=== PATIENT | female | born 1985 | race Caucasian/White ===

== ENCOUNTER 2016-08-15 11:50 | Emergency (ER) | payer OTHER ==
[2016-08-15 11:57] VITALS: BP 118/74; PULSE 90; TEMP 98.5; BMI 43.4
--- NOTE | 2016-08-15 13:14 | PDOC ---
History of Present Illness - General Chief Complaint: Cold Symptoms Stated Complaint: COLD SYMPTOMS Time Seen by Provider: 08/15/16 12:39 - History of Present Illness Initial Comments: 08/15/16 13:06 CHIEF COMPLAINT: cough, congestion, headache, yeast infection HISTORY OF PRESENT ILLNESS: 30 yo with no significant PMH presents to ED with sudden onset congestion, cough, headache. Patient states she was feeling fine yesterday morning and went to work, and "out of nowhere" she started feeling terrible and by the time she went home from work she felt really sick. This morning she woke up feeling even worse. She has not taken any medications for her symptoms. She denies fever or chills, nausea, vomiting, diarrhea, and states she only takes ibuprofen for really bad back pain sometimes. Patient also reports "I have a yeast infection" and states she is itchy with white, cottage cheese like discharge, "just like the last time I had a yeast infection. " PAST MEDICAL HISTORY: Denies past medical history FAMILY HISTORY: Denies SOCIAL HISTORY: Current smoker, 1/2 pack daily. Denies alcohol, illicit drug use. SURGICAL HISTORY: Denies ALLERGIES: tetrocycline REVIEW OF SYSTEMS General/Constitutional: Denies fever or chills. Denies weakness, weight change. HEENT: Denies change in vision. Denies ear pain or discharge. Denies sore throat. Cardiovascular: Denies chest pain or shortness of breath. Respiratory: Denies cough, wheezing, or hemoptysis. Gastrointestinal: Denies nausea, vomiting, diarrhea or constipation. Denies rectal bleeding. Genitourinary: Denies dysuria, frequency, or change in urination. Musculoskeletal: Denies joint or muscle swelling or pain. Denies neck or back pain. Skin and breasts: Denies rash or easy bruising. Neurologic: Headache since this morning. Denies, vertigo, loss of consciousness , or loss of sensation. PHYSICAL EXAM General Appearance: Well-appearing, appropriately dressed. No apparent distress. HEENT: Tenderness to maxillary and frontal bones on palpation. Swollen turbinates. EOMI, PERRLA, normal ENT inspection, normal voice, TMs normal, pharynx normal. No conjunctival pallor. No photophobia, scleral icterus. Neck: Supple. Trachea midline. No tenderness, rigidity, carotid bruit, stridor , lymphadenopathy, or thyromegaly. Respiratory/Chest: Lungs CTAB. Cardiovascular: RRR. S1, S2. Gastrointestinal/Abdominal: Normal bowel sounds. Abdomen soft, non-distended. No tenderness or rebound tenderness. No organomegaly, pulsatile mass, guarding , hernia, hepatomegaly, splenomegaly. Integumentary: Appropriate color, dry, warm. 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 Fully oriented, alert. Appropriate mood/affect. Motor strength 5/5. No appreciable EOM palsy, facial droop or sensory deficit. Past History - Past Medical History Allergies/Adverse Reactions: Allergies Allergy/AdvReac Type Severity Reaction Status Date / Time tetracycline Allergy Verified 08/15/16 12:47 Home Medications: Ambulatory Orders Dextromethorphan HBr [Robitussin] 15 mg PO QID PRN #20 cap 08/15/16 Fluconazole 150 mg PO ONCE #1 tablet 08/15/16 Ibuprofen 600 mg PO QID PRN #28 tablet 08/15/16 Oseltamivir Phosphate [Tamiflu] 75 mg PO BID #10 capsule 08/15/16 Suicide Attempt (Hx): No - Psycho/Social/Smoking Cessation Hx Anxiety: No Suicidal Ideation: No Smoking History: Never smoked Have you smoked in the past 12 months: No Number of Cigarettes Smoked Daily: 10 Hx Alcohol Use: No Drug/Substance Use Hx: No Substance Use Type: None *Physical Exam - Vital Signs Last Vital Signs Temp Pulse Resp BP Pulse Ox 98.5 F 90 18 118/74 97 08/15/16 11:55 08/15/16 11:55 08/15/16 11:55 08/15/16 11:55 08/15/16 11:55 Medical Decision Making - Medical Decision Making 08/15/16 13:14 30 yo with no significant PMH presents to ED with sudden onset congestion, cough , headache. -Flu swab Flu positive for influenza A. -Tamiflu 75 mg bid x 5 days -Ibuprofen 600 mg TID PRN fever/body aches -Dextromethrophan 15 mL qid PRN cough -Diflucan 150 mg po for yeast infection Rxs sent to pharm. Advised patient to take meds as prescribed and f/u with PMD by the end of next week. Advised patient of signs and symptoms for return to ER; patient verbalized understanding and agrees to plan. *DC/Admit/Observation/Transfer Diagnosis at time of Disposition: Influenza A, Yeast infection - Discharge Dispostion Disposition: HOME Condition at time of disposition: Stable Admit: No - Prescriptions Prescriptions: Fluconazole 150 mg PO ONCE #1 tablet Ibuprofen 600 mg PO QID PRN #28 tablet PRN Reason: Fever Dextromethorphan HBr [Robitussin] 15 mg PO QID PRN #20 cap PRN Reason: Cough Oseltamivir Phosphate [Tamiflu] 75 mg PO BID #10 capsule - Referrals Referrals: Archie Aguilar MD [Primary Care Provider] - - Patient Instructions Printed Discharge Instructions: DI for Influenza -- Adult Additional Instructions: Please take medications as prescribed and follow up with your primary care doctor by the end of next week. If you experience persistent fever unrelieved by medication, nausea, vomiting, diarrhea, rash, headache, shortness of breath, chest pain, or any new or worsening symptoms, please return to the ER. - Post Discharge Activity Work/School Note: Back to Work
== END 2016-08-15 14:06 | disposition home or self-care (01) ==
LOC: JERFT 11:50
DX: J09.X2 Influenza due to identified novel influenza A virus with other respiratory manifestations (principal); B37.3 Candidiasis of vulva and vagina
CPT/HCPCS: 87804; 99281-25

== ENCOUNTER 2016-10-02 23:36 | Emergency (ER) | payer OTHER ==
[2016-10-02 23:55] VITALS: BP 144/78; PULSE 101; TEMP 98.1; BMI 43.1
--- NOTE | 2016-10-03 00:05 | PDOC ---
History of Present Illness - General Chief Complaint: Pain Stated Complaint: FOOT PAIN Time Seen by Provider: 10/02/16 23:53 History Source: Patient Exam Limitations: No Limitations - History of Present Illness Initial Comments: 10/03/16 00:00 31yo Female patient presents to ED c/o right foot pain. Patient states symptoms began approximately 2 weeks ago on and off. While at work today, patient states "I stepped wrong," and felt sharp pain to front of foot, and each time she steps down pain radiates to back of horton. She reports being able to only walk on the heel of her right foot. Denies any other complaints at this time. LNMP: . Occurred: reports: other (2 Weeks.) Severity: Yes: moderate Lower Extremity Pain Location: right: foot Method of Injury: No: unknown, assault, burn, direct blow, fell, incised, motor vehicle accident, sports injury, twisted, other Modifying Factors: worse with: None, cold therapy, immobilization, pain medication, rest, other Lower Ext. Injury Location - Specific Injury Location Foot: right foot soft tissue tenderness, right foot pain, left foot non-tender, bilateral foot no evidence of injury, bilateral foot normal inspection, bilateral foot normal range of motion Extremity Pain Location - Extremity Pain Location Extremity Pain Locations: right: foot Past History - Travel Traveled outside of the country in the last 30 days: No Close contact w/someone who was outside of country & ill: No - Past Medical History Allergies/Adverse Reactions: Allergies Allergy/AdvReac Type Severity Reaction Status Date / Time tetracycline Allergy Verified 10/03/16 00:00 Home Medications: Ambulatory Orders Ibuprofen [Motrin -] 600 mg PO Q6H PRN #20 tablet 10/03/16 Prednisone [Deltasone -] 40 mg PO DAILY #8 tablet 10/03/16 Suicide Attempt (Hx): No Other medical history: Denies - Immunization History Immunization Up to Date: No - Psycho/Social/Smoking Cessation Hx Anxiety: No Suicidal Ideation: No Smoking History: Current every day smoker Have you smoked in the past 12 months: Yes Number of Cigarettes Smoked Daily: 10 Information on smoking cessation initiated: No Hx Alcohol Use: Yes Drug/Substance Use Hx: No Substance Use Type: Alcohol Review of Systems - Review of Systems Able to Perform ROS?: Yes Is the patient limited Sammarinese proficient: No Constitutional: No: Chills, Fever Respiratory: No: Cough, Stridor, Wheezing Cardiac (ROS): No: Chest Pain, Lightheadedness, Palpitations, Syncope ABD/GI: No: Diarrhea, Nausea, Vomiting Musculoskeletal: Yes: Other (Foot Pain) All Other Systems: Reviewed and Negative *Physical Exam - Vital Signs Last Vital Signs Temp Pulse Resp BP Pulse Ox 98.1 F 101 H 18 144/78 98 10/02/16 23:51 10/02/16 23:51 10/02/16 23:51 10/02/16 23:51 10/02/16 23:51 - Physical Exam General Appearance: Yes: Nourished, Appropriately Dressed. No: Apparent Distress, Mild Distress, Moderate Distress, Severe Distress Respiratory/Chest: positive: Lungs Clear, Normal Breath Sounds. negative: Accessory Muscle Use, Labored Respiration, Rapid RR Cardiovascular: positive: Regular Rhythm, Regular Rate. negative: Edema, JVD, Bradycardia, Tachycardia Musculoskeletal: positive: Normal Inspection. negative: CVA Tenderness, Vertebral Tenderness Extremity: positive: Normal Capillary Refill, Normal Inspection, Normal Range of Motion, Tender (Lateral aspect of right foot plantar surface.). 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, Fully Oriented, Alert, Normal Mood/ Affect, Normal Response, Motor Strength 5/5 ED Treatment Course - RADIOLOGY Radiology Studies Ordered: Category Date Time Status FOOT-RIGHT [RAD] Stat Radiology 10/02/16 23:59 Ordered *DC/Admit/Observation/Transfer Diagnosis at time of Disposition: Left foot pain - Discharge Dispostion Disposition: HOME Condition at time of disposition: Stable Admit: No - Prescriptions Prescriptions: Prednisone [Deltasone -] 40 mg PO DAILY #8 tablet Ibuprofen [Motrin -] 600 mg PO Q6H PRN #20 tablet PRN Reason: Foot Pain - Referrals Referrals: STAFF,NOT ON [Primary Care Provider] - Rodríguez Angel MD [Staff Physician] - - Patient Instructions Printed Discharge Instructions: DI for Foot Pain Additional Instructions: FOLLOW UP WITH DR. ANGEL (ORTHOPEDIC). CALL TO SCHEDULE APPOINTMENT. TAKE MEDICATIONS PRESCRIBED. SOAK FOOT IN WARM SITZ BATH. AVOID PROLONGED STANDING. PURCHASE COMFORTABLE FOOTWEAR. RETURN IF ANY CONCERNS FOR WORSENING OF SYMPTOMS. Print Language: DANISH - Post Discharge Activity Work/School Note: Back to Work
[2016-10-03 00:25] LABS: URINE APPEARANCE CLEAR; URINE BILIRUBIN NEGATIVE (NEGATIVE); URINE BLOOD NEGATIVE (NEGATIVE); URINE COLOR LTYELLOW; URINE GLUCOSE (UA) NEGATIVE (NEGATIVE); URINE KETONE NEGATIVE (NEGATIVE); URINE LEUK ESTERASE NEGATIVE (NEGATIVE); URINE NITRITE NEGATIVE (NEGATIVE); URINE PROTEIN NEGATIVE (NEGATIVE); URINE UROBILINOGEN NEGATIVE E.U./dl (0.2-1.0)
[2016-10-03] MEDS ORDERED: predniSONE 20 MG TABLET (UD) PO ONE (01:34)
[2016-10-03] MEDS ORDERED: IBUPROFEN 400 MG TABLET (FP) PO ONE ×2 (01:34→01:38)
[2016-10-03] MEDS ORDERED: predniSONE 20 MG TABLET (UD) ONE (01:37)
== END 2016-10-03 01:45 | disposition home or self-care (01) ==
LOC: SUPCPDRO 23:36 → JER 23:36
DX: M79.671 Pain in right foot (principal); X50.1XXA Overexertion from prolonged static or awkward postures, initial encounter; Y93.89 Activity, other specified; Y92.511 Restaurant or cafe as the place of occurrence of the external cause; Y99.0 Civilian activity done for income or pay
CPT/HCPCS: 73630-TC-RT; 81003; 84703; 99282-25

== ENCOUNTER 2021-02-22 13:59 | Emergency (ER) | payer OTHER ==
[2021-02-22 14:19] VITALS: BP 110/68; PULSE 82; TEMP 98.2; BMI 38.5
[2021-02-22] MEDS ORDERED: KETOROLAC TROMETHAMINE 30 MG/1 ML VIAL IM ONE (15:08)
[2021-02-22] MEDS ORDERED: METHOCARBAMOL 500 MG TABLET PO ONE (15:08)
[2021-02-22] MEDS ORDERED: METHOCARBAMOL 500 MG TABLET ONE (15:16)
[2021-02-22] MEDS ORDERED: KETOROLAC TROMETHAMINE 30 MG/1 ML VIAL ONE (15:16)
== END 2021-02-22 15:50 | disposition home or self-care (01) ==
LOC: JERFT 13:59
PROC: 3E0233Z Introduction of Anti-inflammatory into Muscle, Percutaneous Approach (ICD-10-PCS; principal; 2021-02-22)
DX: M54.5 Low back pain (principal); V43.52XA Car driver injured in collision with other type car in traffic accident, initial encounter
CPT/HCPCS: 99284-25

== ENCOUNTER 2021-04-16 08:53 | Emergency (ER) | payer OTHER ==
[2021-04-16 09:08] VITALS: BMI 27.4
[2021-04-16] MEDS ORDERED: SODIUM CHLORIDE 1,000 ML IV STA (11:23)
[2021-04-16] MEDS ORDERED: LIDOCAINE 5% TOPICAL PATCH TP ONE (11:23)
[2021-04-16] MEDS ORDERED: ACETAMINOPHEN 1000 MG/100 ML VIAL (NON FORMULARY) IVPB ONE (11:23)
[2021-04-16] MEDS ORDERED: LIDOCAINE 5% TOPICAL PATCH ONE (12:13)
[2021-04-16] MEDS ORDERED: ACETAMINOPHEN INJECTION 100 ML IVPB ONE (12:13)
[2021-04-16 12:19] LABS: BASO % 0.5 % (0-2.0); EOS % 3.7 % (0-4.5); HEMATOCRIT 39.3 % (32.4-45.2); HEMOGLOBIN 13.1 GM/dL (10.7-15.3); LYMPH % 27.5 % (8-40); MCH 28.4 pg (25.7-33.7); MCHC 33.5 g/dl (32.0-36.0); MEAN PLT VOLUME 7.5 fl (7.5-11.1); MONO % 6.1 % (3.8-10.2); NEUT % 62.2 % (42.8-82.8); PLATELET COUNT 264 10^3/uL (134-434); RBC 4.62 M/mm3 (3.60-5.2); RDW 14.2 % (11.6-15.6); WHITE BLOOD COUNT 10.8 K/mm3 (4.0-10.0)
[2021-04-16 12:21] LABS: PH,URINE 6.5 (5.0-8.0); URINE APPEARANCE CLEAR; URINE BILIRUBIN NEGATIVE (NEGATIVE); URINE COLOR YELLOW; URINE GLUCOSE (UA) NEGATIVE (NEGATIVE); URINE KETONE NEGATIVE (NEGATIVE); URINE LEUK ESTERASE NEGATIVE (NEGATIVE); URINE NITRITE NEGATIVE (NEGATIVE); URINE PROTEIN NEGATIVE (NEGATIVE)
[2021-04-16 12:24] LABS: INR 0.99 (0.83-1.09); PROTHROMBIN TIME (PATIENT) 12.2 SEC (9.7-13.0)
[2021-04-16 12:27] LABS: HCG,QUALITATIVE URINE Negative
[2021-04-16 12:40] LABS: CALCIUM 8.9 mg/dL (8.5-10.1)
[2021-04-16 12:41] LABS: ALBUMIN 3.6 g/dl (3.4-5.0)
[2021-04-16 12:44] LABS: CREATININE 0.7 mg/dL (0.55-1.3)
[2021-04-16 12:45] LABS: BILIRUBIN,TOTAL 0.3 mg/dL (0.2-1); TOT PROT 6.9 g/dl (6.4-8.2)
[2021-04-16 15:12] VITALS: BP 118/65; PULSE 70; TEMP 98.6
[2021-04-16] MEDS ORDERED: LIDOCAINE PATCH REMOVAL MC ONE (22:00)
== END 2021-04-16 15:13 | disposition home or self-care (01) ==
LOC: JER 08:53
PROC: 3E0333Z Introduction of Anti-inflammatory into Peripheral Vein, Percutaneous Approach (ICD-10-PCS; principal; 2021-04-16)
PROC: 3E0337Z Introduction of Electrolytic and Water Balance Substance into Peripheral Vein, Percutaneous Approach (ICD-10-PCS; 2021-04-16)
DX: R51.9 Headache, unspecified (principal); J01.90 Acute sinusitis, unspecified
CPT/HCPCS: 36415; 70450-TC; 70496-TC; 70498-TC; 80053; 81003; 84703; 85025; 85610; 87086; 99285-25; C9803; J0131; Q9967; U0003; U0005

== ENCOUNTER 2021-12-24 22:13 | Emergency (ER) | payer OTHER ==
[2021-12-24 22:22] VITALS: BP 127/65; PULSE 86; TEMP 99.1; BMI 38.0
[2021-12-24] MEDS ORDERED: IBUPROFEN 600 MG TABLET (FP) PO ONE ×2 (22:26→22:32)
[2021-12-24] MEDS ORDERED: DIPHTH,PERTUSS(ACELL),TET 0.5 ML DISP.SYRIN IM ONE ×2 (22:33→22:41)
== END 2021-12-24 23:20 | disposition home or self-care (01) ==
LOC: FER 22:13
PROC: 3E0234Z Introduction of Serum, Toxoid and Vaccine into Muscle, Percutaneous Approach (ICD-10-PCS; principal; 2021-12-24)
DX: S80.02XA Contusion of left knee, initial encounter (principal); W19.XXXA Unspecified fall, initial encounter
CPT/HCPCS: 73560-TC-LT-FY; 90715; 99283-25

== ENCOUNTER 2022-11-01 11:44 | Emergency (ER) | payer OTHER ==
[2022-11-01 11:55] VITALS: BP 134/84; PULSE 82; RESP 16; TEMP 99.3; BMI 44.4
== END 2022-11-01 13:19 | disposition home or self-care (01) ==
LOC: FER 11:44
DX: S63.633A Sprain of interphalangeal joint of left middle finger, initial encounter (principal); M79.645 Pain in left finger(s); X50.0XXA Overexertion from strenuous movement or load, initial encounter; Y99.0 Civilian activity done for income or pay
CPT/HCPCS: 73140-TC-LT-FY; 99283-25